=== PATIENT | male | born 1960 | race Hispanic/Latino ===

== ENCOUNTER 2018-07-21 01:46 | Inpatient (IN) | payer OTHER ==
[2018-07-21 02:48] LABS: Basophils # (Auto) 0.1 K/mm3 (0.0-0.1); Basophils % (Auto) 1.6 % (0.0-1.8); Eosinophils % (Auto) 0.5 % (0.0-4.3); Hematocrit 42.7 % (35.5-45.6); Lymphocytes # (Auto) 0.6 K/mm3 (1.2-5.4); Lymphocytes % (Auto) 14.2 % (13.4-35.0); Mean Corpuscular HGB Conc 33 % (32-34); Mean Corpuscular Hemoglobin 35 pg (28-32); Mean Corpuscular Volume 107 fl (84-94); Monocytes # (Auto) 0.3 K/mm3 (0.0-0.8); Monocytes % (Auto) 8.4 % (0.0-7.3); Platelet Count 159 K/mm3 (140-440); Red Blood Count 3.98 M/mm3 (3.65-5.03); Red Cell Distribution Width 15.4 % (13.2-15.2)
[2018-07-21 03:11] LABS: BUN/Creatinine Ratio 24; Blood Urea Nitrogen 17 mg/dL (9-20); Calcium 8.4 mg/dL (8.4-10.2); Hemolysis Index 20
[2018-07-21 03:20] LABS: INR 0.89 (0.87-1.13); Partial Thromboplastin Time 22.8 Sec. (24.2-36.6)
--- NOTE | 2018-07-21 04:44 | XRay Report ---
FINAL REPORT PROCEDURE: XR CHEST ROUTINE 2V TECHNIQUE: PA and lateral chest radiographs were obtained. CPT 66827 HISTORY: Shortness of breath COMPARISON: No prior studies are available for comparison. FINDINGS: Heart: Normal. Mediastinum/Vessels: Normal. Lungs/Pleural space: Normal. Bony thorax: No acute osseous abnormality. Other: IMPRESSION: Normal examination.
--- NOTE | 2018-07-21 05:57 | Emergency Department Report ---
ED Shortness of Breath HPI - General Chief Complaint: Dyspnea/Respdistress Stated Complaint: THAD/EDEMA IN LE Time Seen by Provider: 07/21/18 03:56 Source: patient, EMS, old records reviewed (no previous medical record) Mode of arrival: Stretcher Limitations: No Limitations - History of Present Illness Initial Comments: 57-year-old male with a past medical history of CHF, COPD without home oxygen use, CAD with stent 2 presents to the hospital with complaints of progressively worsening shortness of breath 4 days. Patient also having intermittent sternal chest pain but denies pain currently. Patient is having a cough with episode of posttussive vomiting and occasional wheezing. Patient chronically sleeps on 2 pillows and has PND. He is using his albuterol inhaler intermittently without improvement. He noticed progressively worsening bilateral lower extremity edema. Patient lives in [place] and traveled here 1 week ago via airplane for the holidays. He is compliant with his medication but does not appear to be on a diuretic. He was under the impression that hydralazine was a diuretic. He does not know his baseline ejection fraction. - Related Data Home Medications Medication Instructions Recorded Confirmed Last Taken Clopidogrel [Plavix] 75 mg PO QDAY 07/21/18 07/21/18 Unknown DULoxetine [Cymbalta] 30 mg PO BID 07/21/18 07/21/18 Unknown Lisinopril [Zestril TAB] 2.5 mg PO QDAY 07/21/18 07/21/18 Unknown Metoprolol Xl [Metoprolol 25 mg PO QDAY 07/21/18 07/21/18 Unknown SUCCINATE ER TAB] Pantoprazole [Protonix TAB] 20 mg QDAY 07/21/18 07/21/18 Unknown RX: hydrALAZINE [Apresoline TAB] 25 mg PO TID 07/21/18 07/21/18 Unknown Allergies Allergy/AdvReac Type Severity Reaction Status Date / Time No Known Allergies Allergy Unverified 07/21/18 02:11 ED Review of Systems ROS: Stated complaint: THAD/EDEMA IN LE Other details as noted in HPI Comment: All other systems reviewed and negative ED Past Medical Hx - Past Medical History Previous Medical History?: Yes Hx Congestive Heart Failure: Yes Hx COPD: Yes - Surgical History Past Surgical History?: Yes Hx Coronary Stent: Yes (x 2) Additional Surgical History: Sx to left arm and right hip - Social History Smoking Status: Current Every Day Smoker Substance Use Type: Alcohol, Prescribed - Medications Home Medications: Home Medications Medication Instructions Recorded Confirmed Last Taken Type Clopidogrel [Plavix] 75 mg PO QDAY 07/21/18 07/21/18 Unknown History DULoxetine [Cymbalta] 30 mg PO BID 07/21/18 07/21/18 Unknown History Lisinopril [Zestril TAB] 2.5 mg PO QDAY 07/21/18 07/21/18 Unknown History Metoprolol Xl [Metoprolol 25 mg PO QDAY 07/21/18 07/21/18 Unknown History SUCCINATE ER TAB] Pantoprazole [Protonix TAB] 20 mg QDAY 07/21/18 07/21/18 Unknown History RX: hydrALAZINE [Apresoline TAB] 25 mg PO TID 07/21/18 07/21/18 Unknown History ED Physical Exam - General Limitations: No Limitations - Other Other exam information: General: No limitations, patient is alert in no acute distress Head exam: Atraumatic, normocephalic Eyes exam: Normal appearance, pupils equal reactive to light, extraocular movements intact ENT: Moist mucous membrane, normal oropharynx Neck exam: Normal inspection, full range of motion, no meningismus nontender Respiratory exam: Clear to auscultation bilateral, no wheezes, rales, crackles Cardiovascular: Normal rate and rhythm, normal heart sounds Abdomen: Soft, nondistended, and nontender, with normal bowel sounds, no re bound, or guarding Extremity: Full range of motion, mild bilateral lower extremity pedal and distal leg edema. Symmetrical without isolated calf tenderness. He does have tenderness to palpation of the anterior lower leg Back: Normal Inspection, full range of motion, no tenderness Neurologic: Alert, oriented x3, cranial nerves intact, no motor or sensory deficit Psychiatric: normal affect, normal mood Skin: Warm, dry, intact ED Course Vital Signs 07/21/18 07/21/18 07/21/18 02:00 02:01 02:30 Temperature 97.7 F Pulse Rate 83 81 87 Respiratory 11 L 15 21 Rate Blood Pressure 112/73 111/69 117/72 Blood Pressure 111/69 [Right] O2 Sat by Pulse 100 100 100 Oximetry 07/21/18 07/21/18 07/21/18 02:33 03:00 05:26 Temperature Pulse Rate 83 96 H Respiratory 15 19 Rate Blood Pressure 112/73 115/73 Blood Pressure [Right] O2 Sat by Pulse 99 Oximetry 07/21/18 07/21/18 07/21/18 05:30 06:13 06:30 Temperature Pulse Rate 89 94 H 95 H Respiratory 25 H 22 24 Rate Blood Pressure 131/84 126/78 129/80 Blood Pressure [Right] O2 Sat by Pulse 98 95 97 Oximetry 07/21/18 07/21/18 07/21/18 07:00 07:30 07:40 Temperature Pulse Rate 106 H 105 H 96 H Respiratory 34 H 21 29 H Rate Blood Pressure 144/89 129/80 129/80 Blood Pressure [Right] O2 Sat by Pulse 96 95 98 Oximetry 07/21/18 07/21/18 07/21/18 07:50 08:00 08:10 Temperature Pulse Rate 94 H 101 H 99 H Respiratory 29 H 25 H 29 H Rate Blood Pressure 129/80 140/91 140/91 Blood Pressure [Right] O2 Sat by Pulse 94 98 96 Oximetry 07/21/18 07/21/18 07/21/18 08:30 12:29 13:29 Temperature Pulse Rate 90 Respiratory 16 20 Rate Blood Pressure 161/89 156/89 Blood Pressure [Right] O2 Sat by Pulse 97 Oximetry 07/21/18 07/21/18 13:30 13:35 Temperature 98.3 F 98.3 F Pulse Rate 90 Respiratory 20 Rate Blood Pressure Blood Pressure 111/69 [Right] O2 Sat by Pulse 97 Oximetry ED Medical Decision Making - Lab Data Result diagrams: 07/21/18 02:35 07/21/18 02:35 Lab Results 07/21/18 07/21/18 07/21/18 Range/Units 02:35 02:35 02:51 WBC 4.2 L (4.5-11.0) K/mm3 RBC 3.98 (3.65-5.03) M/mm3 Hgb 14.0 (11.8-15.2) gm/dl Hct 42.7 (35.5-45.6) % MCV 107 H (84-94) fl MCH 35 H (28-32) pg MCHC 33 (32-34) % RDW 15.4 H (13.2-15.2) % Plt Count 159 (140-440) K/mm3 Lymph % (Auto) 14.2 (13.4-35.0) % [place] % (Auto) 8.4 H (0.0-7.3) % Eos % (Auto) 0.5 (0.0-4.3) % Baso % (Auto) 1.6 (0.0-1.8) % Lymph # 0.6 L (1.2-5.4) K/mm3 [place] # 0.3 (0.0-0.8) K/mm3 Eos # 0.0 (0.0-0.4) K/mm3 Baso # 0.1 (0.0-0.1) K/mm3 Seg Neutrophils % 75.3 H (40.0-70.0) % Seg Neutrophils # 3.1 (1.8-7.7) K/mm3 PT (12.2-14.9) Sec. INR (0.87-1.13) APTT (24.2-36.6) Sec. D-Dimer 608.66 H (0-234) ng/mlDDU Sodium 140 (137-145) mmol/L Potassium 4.0 (3.6-5.0) mmol/L Chloride 98.7 (98-107) mmol/L Carbon Dioxide 18 L (22-30) mmol/L Anion Gap 27 mmol/L BUN 17 (9-20) mg/dL Creatinine 0.7 L (0.8-1.5) mg/dL Estimated GFR > 60 ml/min BUN/Creatinine Ratio 24 % Glucose 94 (75-100) mg/dL Calcium 8.4 (8.4-10.2) mg/dL Total Creatine Kinase (55-170) units/L CK-MB (CK-2) (0.0-4.0) ng/mL CK-MB (CK-2) Rel Index (0-4) Troponin T (0.00-0.029) ng/mL NT-Pro-B Natriuret Pep (0-900) pg/mL 07/21/18 07/21/18 Range/Units 02:54 02:54 WBC (4.5-11.0) K/mm3 RBC (3.65-5.03) M/mm3 Hgb (11.8-15.2) gm/dl Hct (35.5-45.6) % MCV (84-94) fl MCH (28-32) pg MCHC (32-34) % RDW (13.2-15.2) % Plt Count (140-440) K/mm3 Lymph % (Auto) (13.4-35.0) % [place] % (Auto) (0.0-7.3) % Eos % (Auto) (0.0-4.3) % Baso % (Auto) (0.0-1.8) % Lymph # (1.2-5.4) K/mm3 [place] # (0.0-0.8) K/mm3 Eos # (0.0-0.4) K/mm3 Baso # (0.0-0.1) K/mm3 Seg Neutrophils % (40.0-70.0) % Seg Neutrophils # (1.8-7.7) K/mm3 PT 12.4 (12.2-14.9) Sec. INR 0.89 (0.87-1.13) APTT 22.8 L (24.2-36.6) Sec. D-Dimer (0-234) ng/mlDDU Sodium (137-145) mmol/L Potassium (3.6-5.0) mmol/L Chloride (98-107) mmol/L Carbon Dioxide (22-30) mmol/L Anion Gap mmol/L BUN (9-20) mg/dL Creatinine (0.8-1.5) mg/dL Estimated GFR ml/min BUN/Creatinine Ratio % Glucose (75-100) mg/dL Calcium (8.4-10.2) mg/dL Total Creatine Kinase 87 (55-170) units/L CK-MB (CK-2) 4.0 (0.0-4.0) ng/mL CK-MB (CK-2) Rel Index 4.5 H (0-4) Troponin T < 0.010 (0.00-0.029) ng/mL NT-Pro-B Natriuret Pep 45.51 (0-900) pg/mL - EKG Data -: EKG Interpreted by Me (incomplete right bundle-branch block, old anterior infarct) EKG shows normal: sinus rhythm, axis (qrs 13), QRS complexes (qrsd 119), ST-T waves (no stemi) Rate: normal - EKG Data When compared to previous EKG there are: previous EKG unavailable - Radiology Data Radiology results: report reviewed FINAL REPORT PROCEDURE: XR CHEST ROUTINE 2V TECHNIQUE: PA and lateral chest radiographs were obtained. CPT 47148 HISTORY: Shortness of breath COMPARISON: No prior studies are available for comparison. FINDINGS: Heart: Normal. Mediastinum/Vessels: Normal. Lungs/Pleural space: Normal. Bony thorax: No acute osseous abnormality. Other: IMPRESSION: Normal examination. - Medical Decision Making Patient will be admitted to the hospital for further workup of worsening shortness of breath. D-dimer is elevated with a recent travel history. CT angiogram and bilateral leg Dopplers pending at disposition. Patient will be signed out to oncoming physician Dr. Flores to admit after CT report returns. Pt informed of plan to admit. - Differential Diagnosis IL, PE, atypical CP, COPD, costochondritis, CHF, kidney failure, liver fail Critical Care Time: No Critical care attestation.: If time is entered above; I have spent that time in minutes in the direct care of this critically ill patient, excluding procedure time. ED Disposition Clinical Impression: Dyspnea, Bilateral leg edema, Chest pain, Hx of congestive heart failure, H/O heart artery stent, COPD (chronic obstructive pulmonary disease) Disposition: OP ADMIT IP TO THIS HOSP Is pt being admited?: Yes Condition: Stable Time of Disposition: 06:01 (pending admission )
--- NOTE | 2018-07-21 06:25 | Cat Scan Report ---
FINAL REPORT PROCEDURE: CT ANGIO CHEST TECHNIQUE: Computerized tomographic angiography of the chest was performed after the IV injection of iodinated nonionic contrast including image processing. The image data was postprocessed using 2-dim ensional multiplanar reformatted (MPR) and 3-dimensional (MIP and/or volume rendered) techniques. HISTORY: sob, elevated ddimer COMPARISON: No prior studies are available for comparison. FINDINGS: Heart and pericardium: Normal. Thoracic aorta: Normal. Pulmonary vasculature: There is no evidence of pulmonary arterial emboli. Lymph nodes: No enlarged thoracic lymph nodes. Lungs: The lungs are clear. No infiltrate, effusion or pneumothorax. Pleural space: No effusion, thickening, or pneumothorax. Musculoskeletal structures: No significant abnormality. Upper abdominal structures: There is fatty infiltration of the liver. IMPRESSION: There is no evidence of pulmonary arterial emboli. The lungs are clear.
[2018-07-21] MEDS ORDERED: ZOFRAN ONE (07:00)
[2018-07-21] MEDS ORDERED: ZOFRAN IV ONE (07:00)
[2018-07-21] MEDS ORDERED: SUBLIMAZE ONE (08:20)
[2018-07-21] MEDS ORDERED: REGLAN ONE (08:26)
[2018-07-21] MEDS ORDERED: SUBLIMAZE IV ONE (08:41)
[2018-07-21] MEDS ORDERED: REGLAN IV ONE (08:41)
--- NOTE | 2018-07-21 13:01 | History and Physical Report ---
History of Present Illness Date of admission: 07/21/18 08:03 Chief complaint: Shortness of breath History of present illness: 57-year-old male with a past medical history of COPD and CHF, CAD status post stents. Presents with progressive shortness of breath 4 days. Associated with chest pain. Prior to patient's chest pain has been substernal dull, 4 out of 10 and intermittent. Also associated with cough, which he had an episode of posttussive vomiting with. The patient is also complaining of wheezing. He is complaining of 2 pillow orthopnea and PND. He has uses albuterol inhaler and has had no improvement. She has worsening bipedal edema. The patient actually lives in [place], traveled to [place] for the holidays. He states that he has been compliant with all his medications, but he's not on that a diuretic. He was under the impression that hydralazine was a diuretic, he does not know his EF but knows he has CHF. He admits that he has been eating some salty foods and consuming lots of liquids. He is not complaining of tremors and shaking, has not had a drink for 2 days, usually drinks very heavily Past medical history CHF, COPD and, hypertension, tobacco abuse, CAD status post stents Past surgical history Surgery to left arm and right hip Social history current every day smoker, drinks alcohol heavily, a pint of liquor daily, denies illicit drug use Family history hypertension and heart disease Medications and Allergies Allergies Allergy/AdvReac Type Severity Reaction Status Date / Time No Known Allergies Allergy Unverified 07/21/18 02:11 Home Medications Medication Instructions Recorded Confirmed Last Taken Type Clopidogrel [Plavix] 75 mg PO QDAY 07/21/18 07/21/18 Unknown History DULoxetine [Cymbalta] 30 mg PO BID 07/21/18 07/21/18 Unknown History Lisinopril [Zestril TAB] 2.5 mg PO QDAY 07/21/18 07/21/18 Unknown History Metoprolol Xl [Metoprolol 25 mg PO QDAY 07/21/18 07/21/18 Unknown History SUCCINATE ER TAB] Pantoprazole [Protonix TAB] 20 mg QDAY 07/21/18 07/21/18 Unknown History hydrALAZINE [Apresoline TAB] 25 mg PO TID 07/21/18 07/21/18 Unknown History Review of Systems All systems: negative Constitutional: fatigue Ears, nose, mouth and throat: no deferred Cardiovascular: chest pain, orthopnea Respiratory: cough Gastrointestinal: no nausea Genitourinary Male: no dysuria Rectal: no pain Musculoskeletal: no neck stiffness Integumentary: no rash Neurological: no head injury Psychiatric: no anxiety Endocrine: no cold intolerance Hematologic/Lymphatic: no easy bruising Allergic/Immunologic: no urticaria Exam - Constitutional Vitals: Temp Pulse Resp BP Pulse Ox 97.7 F 105 H 16 129/80 95 07/21/18 02:01 07/21/18 07:30 07/21/18 08:30 07/21/18 07:30 07/21/18 07:30 General appearance: Present: no acute distress, well-nourished - EENT Eyes: Present: PERRL ENT: hearing intact, clear oral mucosa - Neck Neck: Present: supple, normal ROM - Respiratory Respiratory effort: normal Respiratory: bilateral: diminished, rales - Cardiovascular Heart Sounds: Present: S1 & S2. Absent: rub, click - Extremities Extremities: pulses symmetrical Extremity abnormal: edema Peripheral Pulses: within normal limits - Abdominal General gastrointestinal: Present: soft, non-tender, non-distended, normal bowel sounds Male genitourinary: Present: normal - Integumentary Integumentary: Present: clear, warm, dry - Musculoskeletal Musculoskeletal: gait normal, strength equal bilaterally - Psychiatric Psychiatric: appropriate mood/affect, intact judgment & insight - Neurologic Neurologic: CNII-XII intact, moves all extremities, other (tremors in all extremities) Results - Labs CBC & Chem 7: 07/21/18 02:35 07/21/18 02:35 Labs: Laboratory Last Values WBC 4.2 K/mm3 (4.5-11.0) L 07/21/18 02:35 RBC 3.98 M/mm3 (3.65-5.03) 07/21/18 02:35 Hgb 14.0 gm/dl (11.8-15.2) 07/21/18 02:35 Hct 42.7 % (35.5-45.6) 07/21/18 02:35 MCV 107 fl (84-94) H 07/21/18 02:35 MCH 35 pg (28-32) H 07/21/18 02:35 MCHC 33 % (32-34) 07/21/18 02:35 RDW 15.4 % (13.2-15.2) H 07/21/18 02:35 Plt Count 159 K/mm3 (140-440) 07/21/18 02:35 Lymph % (Auto) 14.2 % (13.4-35.0) 07/21/18 02:35 [place] % (Auto) 8.4 % (0.0-7.3) H 07/21/18 02:35 Eos % (Auto) 0.5 % (0.0-4.3) 07/21/18 02:35 Baso % (Auto) 1.6 % (0.0-1.8) 07/21/18 02:35 Lymph # 0.6 K/mm3 (1.2-5.4) L 07/21/18 02:35 [place] # 0.3 K/mm3 (0.0-0.8) 07/21/18 02:35 Eos # 0.0 K/mm3 (0.0-0.4) 07/21/18 02:35 Baso # 0.1 K/mm3 (0.0-0.1) 07/21/18 02:35 Seg Neutrophils % 75.3 % (40.0-70.0) H 07/21/18 02:35 Seg Neutrophils # 3.1 K/mm3 (1.8-7.7) 07/21/18 02:35 PT 12.4 Sec. (12.2-14.9) 07/21/18 02:54 INR 0.89 (0.87-1.13) 07/21/18 02:54 APTT 22.8 Sec. (24.2-36.6) L 07/21/18 02:54 D-Dimer 608.66 ng/mlDDU (0-234) H 07/21/18 02:51 Sodium 140 mmol/L (137-145) 07/21/18 02:35 Potassium 4.0 mmol/L (3.6-5.0) 07/21/18 02:35 Chloride 98.7 mmol/L (98-107) 07/21/18 02:35 Carbon Dioxide 18 mmol/L (22-30) L 07/21/18 02:35 Anion Gap 27 mmol/L 07/21/18 02:35 BUN 17 mg/dL (9-20) 07/21/18 02:35 Creatinine 0.7 mg/dL (0.8-1.5) L 07/21/18 02:35 Estimated GFR > 60 ml/min 07/21/18 02:35 BUN/Creatinine Ratio 24 % 07/21/18 02:35 Glucose 94 mg/dL (75-100) 07/21/18 02:35 Calcium 8.4 mg/dL (8.4-10.2) 07/21/18 02:35 Total Creatine Kinase 87 units/L (55-170) 07/21/18 02:54 CK-MB (CK-2) 4.0 ng/mL (0.0-4.0) 07/21/18 02:54 CK-MB (CK-2) Rel Index 4.5 (0-4) H 07/21/18 02:54 Troponin T < 0.010 ng/mL (0.00-0.029) 07/21/18 02:54 NT-Pro-B Natriuret Pep 45.51 pg/mL (0-900) 07/21/18 02:54 - Imaging and Cardiology CT scan - chest: image reviewed (no acute findings) Assessment and Plan Assessment and plan: 57-year-old man with history of hypertension, CAD status post stents, CHF, COPD, current every day smoker. Presents with orthopnea and edema chest pain and progressive shortness of breath Acute exacerbation of CHF IV diuretics, optimize medications, obtain echocardiogram Pedal edema is most likely due to CHF, prelim report of lower extremity Dopplers negative for DVT COPD exacerbation Steroids and nebulizers, RT consult Acute respiratory failure Oxygen supplement as needed Hypertension BP meds Tobacco abuse, Counseled about cessation, nicotine patches Alcohol abuse and withdrawal [facility] protocol, counseled about cessation DVT prophylaxis Chemical
[2018-07-21] MEDS ORDERED: SODIUM CHLORIDE FLUSH SYRINGE 10 ML IV PRN (13:05)
[2018-07-21] MEDS ORDERED: TYLENOL PO PRN (13:05)
[2018-07-21] MEDS ORDERED: ZOFRAN IV PRN (13:05)
[2018-07-21] MEDS ORDERED: PROVENTIL IH PRN (13:05)
[2018-07-21] MEDS ORDERED: LASIX 80 MG in NACL 0.9% 50 ML IV ONE (13:08)
[2018-07-21] MEDS ORDERED: ATIVAN IV PRN ×2 (13:20)
[2018-07-21] MEDS: SOLU-Medrol IV SCH ×2 (14:19→22:55)
[2018-07-21] MEDS: ATIVAN PO PRN ×2 (14:20→18:06)
[2018-07-21] MEDS: APRESOLINE PO SCH ×2 (14:20→21:45)
[2018-07-21] MEDS: LASIX IV SCH (18:06)
[2018-07-21] MEDS ORDERED: LIBRIUM PO PRN (19:03)
[2018-07-21] MEDS: DUONEB *Not for PRN Use IH SCH (21:18)
[2018-07-21] MEDS: PULMICORT IH SCH (21:18)
[2018-07-21] MEDS: SODIUM CHLORIDE FLUSH SYRINGE 10 ML IV SCH (22:55)
[2018-07-21] MEDS: LOVENOX SUB-Q SCH (22:55)
[2018-07-21] MEDS: CYMBALTA PO SCH (22:55)
[2018-07-22] MEDS: DUONEB *Not for PRN Use IH SCH ×5 (02:01→20:57)
[2018-07-22 05:39] LABS: Basophils % (Auto) 0.9 % (0.0-1.8); Hemoglobin 13.9 gm/dl (11.8-15.2); Lymphocytes # (Auto) 0.2 K/mm3 (1.2-5.4); Lymphocytes % (Auto) 4.5 % (13.4-35.0); Mean Corpuscular HGB Conc 35 % (32-34); Mean Corpuscular Hemoglobin 36 pg (28-32); Mean Corpuscular Volume 103 fl (84-94); Monocytes # (Auto) 0.2 K/mm3 (0.0-0.8); Monocytes % (Auto) 4.8 % (0.0-7.3); Platelet Count 110 K/mm3 (140-440); Red Cell Distribution Width 14.7 % (13.2-15.2)
[2018-07-22] MEDS: LASIX IV SCH ×2 (05:49→18:39)
[2018-07-22 06:05] LABS: BUN/Creatinine Ratio 23; Blood Urea Nitrogen 14 mg/dL (9-20); Calcium 9.2 mg/dL (8.4-10.2); Hemolysis Index 8
[2018-07-22] MEDS: ATIVAN PO PRN (06:43)
[2018-07-22] MEDS: TORADOL IV PRN ×2 (09:05→20:02)
[2018-07-22] MEDS: APRESOLINE PO SCH ×3 (09:05→21:45)
[2018-07-22] MEDS: PULMICORT IH SCH ×2 (09:21→20:57)
[2018-07-22] MEDS ORDERED: PROTONIX PO SCH ×2 (10:00→14:30)
[2018-07-22] MEDS: FOLVITE PO SCH (11:36)
[2018-07-22] MEDS: PLAVIX PO SCH (11:36)
[2018-07-22] MEDS: ZESTRIL PO SCH (11:37)
[2018-07-22] MEDS: HABITROL TD SCH (11:37)
[2018-07-22] MEDS: TOPROL XL PO SCH (11:37)
[2018-07-22] MEDS: SOLU-Medrol IV SCH ×2 (11:38→21:45)
[2018-07-22] MEDS: VITAMIN B-1 PO SCH (11:38)
[2018-07-22] MEDS: CYMBALTA PO SCH ×2 (11:38→21:45)
--- NOTE | 2018-07-22 13:04 | Progress Note ---
Assessment and Plan Assessment and plan: 57-year-old man with history of hypertension, CAD status post stents, CHF, COPD, current every day smoker. Presents with orthopnea and edema chest pain and progressive shortness of breath Acute exacerbation of CHF IV diuretics, optimize medications, obtain echocardiogram Pedal edema is most likely due to CHF, prelim report of lower extremity Dopplers negative for DVT COPD exacerbation Steroids and nebulizers, RT consult Left upper quadrant pain Concern for gastritis, or peptic ulcer disease, he drinks alcohol very heavily Increased PPI dose to 40 daily, consult GI for possible endoscopy, CT abdomen and pelvis pending- Acute respiratory failure Oxygen supplement as needed Hypertension BP meds Tobacco abuse, Counseled about cessation, nicotine patches Alcohol abuse and withdrawal [facility] protocol, counseled about cessation DVT prophylaxis Chemical History Interval history: Patient continues to feel tremulous and anxious, feels that he is withdrawing from alcohol Review of systems Constitutional: No fevers, no malaise, no joint pains CVS: No chest pain, no orthopnea, no dyspnea on exertion, no pedal edema GI: He is complaining of left upper quadrants abdominal pain, no diarrhea, no vomiting, no constipation Respiratory: No shortness of breath, no wheezing, no coughing Hospitalist Physical - Physical exam Narrative exam: General appearance: Present: no acute distress, well-nourished - EENT Eyes: Present: PERRL ENT: hearing intact, clear oral mucosa - Neck Neck: Present: supple, normal ROM - Respiratory Respiratory effort: normal Respiratory: bilateral: diminished, rales - Cardiovascular Heart Sounds: Present: S1 & S2. Absent: rub, click - Extremities Extremities: pulses symmetrical Extremity abnormal: edema Peripheral Pulses: within normal limits - Abdominal General gastrointestinal: Present: soft, non-tender, non-distended, normal bowel sounds Male genitourinary: Present: normal - Integumentary Integumentary: Present: clear, warm, dry - Musculoskeletal Musculoskeletal: gait normal, strength equal bilaterally - Psychiatric Psychiatric: appropriate mood/affect, intact judgment & insight - Neurologic Neurologic: CNII-XII intact, moves all extremities, other (tremors in all extremities) - Constitutional Vitals: Temp Pulse Resp BP Pulse Ox 98.2 F 112 H 18 143/93 95 07/22/18 12:59 07/22/18 12:59 07/22/18 12:59 07/22/18 12:59 07/22/18 12:59 General appearance: Present: no acute distress, well-nourished Results - Labs CBC & Chem 7: 07/22/18 05:15 07/22/18 05:15 Labs: Laboratory Last Values WBC 3.7 K/mm3 (4.5-11.0) L 07/22/18 05:15 RBC 3.90 M/mm3 (3.65-5.03) 07/22/18 05:15 Hgb 13.9 gm/dl (11.8-15.2) 07/22/18 05:15 Hct 40.0 % (35.5-45.6) 07/22/18 05:15 MCV 103 fl (84-94) H 07/22/18 05:15 MCH 36 pg (28-32) H 07/22/18 05:15 MCHC 35 % (32-34) H 07/22/18 05:15 RDW 14.7 % (13.2-15.2) 07/22/18 05:15 Plt Count 110 K/mm3 (140-440) L 07/22/18 05:15 Lymph % (Auto) 4.5 % (13.4-35.0) L 07/22/18 05:15 [place] % (Auto) 4.8 % (0.0-7.3) 07/22/18 05:15 Eos % (Auto) 0.0 % (0.0-4.3) 07/22/18 05:15 Baso % (Auto) 0.9 % (0.0-1.8) 07/22/18 05:15 Lymph # 0.2 K/mm3 (1.2-5.4) L 07/22/18 05:15 [place] # 0.2 K/mm3 (0.0-0.8) 07/22/18 05:15 Eos # 0.0 K/mm3 (0.0-0.4) 07/22/18 05:15 Baso # 0.0 K/mm3 (0.0-0.1) 07/22/18 05:15 Seg Neutrophils % 89.8 % (40.0-70.0) H 07/22/18 05:15 Seg Neutrophils # 3.3 K/mm3 (1.8-7.7) 07/22/18 05:15 PT 12.4 Sec. (12.2-14.9) 07/21/18 02:54 INR 0.89 (0.87-1.13) 07/21/18 02:54 APTT 22.8 Sec. (24.2-36.6) L 07/21/18 02:54 D-Dimer 608.66 ng/mlDDU (0-234) H 07/21/18 02:51 Sodium 133 mmol/L (137-145) L 07/22/18 05:15 Potassium 3.8 mmol/L (3.6-5.0) 07/22/18 05:15 Chloride 90.4 mmol/L (98-107) L 07/22/18 05:15 Carbon Dioxide 26 mmol/L (22-30) D 07/22/18 05:15 Anion Gap 20 mmol/L 07/22/18 05:15 BUN 14 mg/dL (9-20) 07/22/18 05:15 Creatinine 0.6 mg/dL (0.8-1.5) L 07/22/18 05:15 Estimated GFR > 60 ml/min 07/22/18 05:15 BUN/Creatinine Ratio 23 % 07/22/18 05:15 Glucose 219 mg/dL (75-100) H 07/22/18 05:15 Calcium 9.2 mg/dL (8.4-10.2) 07/22/18 05:15 Total Creatine Kinase 87 units/L (55-170) 07/21/18 02:54 CK-MB (CK-2) 4.0 ng/mL (0.0-4.0) 07/21/18 02:54 CK-MB (CK-2) Rel Index 4.5 (0-4) H 07/21/18 02:54 Troponin T < 0.010 ng/mL (0.00-0.029) 07/21/18 13:36 NT-Pro-B Natriuret Pep 45.51 pg/mL (0-900) 07/21/18 02:54
[2018-07-22] MEDS ORDERED: PERCOCET 5/325 PO PRN (14:30)
--- NOTE | 2018-07-22 16:01 | Gastroenterology Consultation ---
History of Present Illness - Reason for Consult Consult date: 07/22/18 abdominal pain - History of Present Illness This is a 57 yo male with pmh of COPD, CHF, and CAD s/p stents in the past, and alcohol use admitted to hospitalist service for SOB likely due to CHF exacerbation. GI consulted today for new onset abdominal pain. Patient has been having nausea and NBNB emesis for the past few days exacerbated with coughing. He developed upper abdominal pain this morning and loss of appetite. He denies any blood in the stool but reports having dark stools. He takes emiliano seltzer at home for the nausea. No prior EGD or colonoscopy. Past History Past Medical History: CAD, COPD, heart failure Past Surgical History: appendectomy Social history: lives with family, alcohol abuse Medications and Allergies Allergies Allergy/AdvReac Type Severity Reaction Status Date / Time No Known Allergies Allergy Unverified 07/21/18 02:11 Home Medications Medication Instructions Recorded Confirmed Last Taken Type Clopidogrel [Plavix] 75 mg PO QDAY 07/21/18 07/21/18 Unknown History DULoxetine [Cymbalta] 30 mg PO BID 07/21/18 07/21/18 Unknown History Lisinopril [Zestril TAB] 2.5 mg PO QDAY 07/21/18 07/21/18 Unknown History Metoprolol Xl [Metoprolol 25 mg PO QDAY 07/21/18 07/21/18 Unknown History SUCCINATE ER TAB] Pantoprazole [Protonix TAB] 20 mg QDAY 07/21/18 07/21/18 Unknown History hydrALAZINE [Apresoline TAB] 25 mg PO TID 07/21/18 07/21/18 Unknown History Active Meds: Active Medications Acetaminophen (Tylenol) 650 mg PO Q4H PRN PRN Reason: Pain MILD(1-3)/Fever >100.5/GUILLORY Albuterol (Proventil) 2.5 mg IH Q4HRT PRN PRN Reason: Shortness Of Breath Albuterol/Ipratropium (Duoneb *Not For Prn Use*) 1 ampul IH Q6HRT [facility] Last Admin: 07/22/18 13:48 Dose: 1 ampul Documented by: Budesonide (Pulmicort) 0.5 mg IH Q12HRT [facility] Last Admin: 07/22/18 09:21 Dose: 0.5 mg Documented by: Chlordiazepoxide HCl (Librium) 50 mg PO Q8H PRN PRN Reason: Anxiety Last Admin: 07/21/18 23:22 Dose: 50 mg Documented by: Clopidogrel Bisulfate (Plavix) 75 mg PO QDAY [facility] Last Admin: 07/22/18 11:36 Dose: 75 mg Documented by: Duloxetine HCl (Cymbalta) 30 mg PO BID [facility] Last Admin: 07/22/18 11:38 Dose: 30 mg Documented by: Enoxaparin Sodium (Lovenox) 40 mg SUB-Q QDAY@2200 [facility] Last Admin: 07/21/18 22:55 Dose: 40 mg Documented by: Folic Acid (Folvite) 1 mg PO QDAY [facility] Last Admin: 07/22/18 11:36 Dose: 1 mg Documented by: Furosemide (Lasix) 40 mg IV BID@0600,1800 [facility] Last Admin: 07/22/18 05:49 Dose: 40 mg Documented by: Hydralazine HCl (Apresoline) 25 mg PO TID [facility] Last Admin: 07/22/18 09:05 Dose: 25 mg Documented by: Ketorolac Tromethamine (Toradol) 15 mg IV Q6H PRN PRN Reason: Pain, Mild (1-3) Last Admin: 07/22/18 09:05 Dose: 15 mg Documented by: Lisinopril (Zestril) 2.5 mg PO QDAY [facility] Last Admin: 07/22/18 11:37 Dose: 2.5 mg Documented by: Lorazepam (Ativan) 2 mg PO Q1H PRN PRN Reason: CIWA-Ar 8-15 Last Admin: 07/22/18 06:43 Dose: 2 mg Documented by: Lorazepam (Ativan) 4 mg IV Q1H PRN PRN Reason: CIWA-Ar 16-25 Lorazepam (Ativan) 4 mg IV Q15MIN PRN PRN Reason: CIWA-Ar >25 Methylprednisolone Sodium Succinate (Solu-Medrol) 40 mg IV Q12HR [facility] Last Admin: 07/22/18 11:38 Dose: 40 mg Documented by: Metoprolol Succinate (Toprol Xl) 25 mg PO QDAY [facility] Last Admin: 07/22/18 11:37 Dose: 25 mg Documented by: Nicotine (Habitrol) 14 mg TD QDAY [facility] Last Admin: 07/22/18 11:37 Dose: 14 mg Documented by: Ondansetron HCl (Zofran) 4 mg IV Q8H PRN PRN Reason: Nausea And Vomiting Last Admin: 07/22/18 00:35 Dose: 4 mg Documented by: Oxycodone/Acetaminophen (Percocet 5/325) 1 tab PO Q6H PRN PRN Reason: Pain, Moderate (4-6) Pantoprazole Sodium (Protonix) 40 mg PO QDAY [facility] Sodium Chloride (Sodium Chloride Flush Syringe 10 Ml) 10 ml IV BID [facility] Last Admin: 07/21/18 22:55 Dose: 10 ml Documented by: Sodium Chloride (Sodium Chloride Flush Syringe 10 Ml) 10 ml IV PRN PRN PRN Reason: LINE FLUSH Thiamine HCl (Vitamin B-1) 100 mg PO QDAY [facility] Last Admin: 07/22/18 11:38 Dose: 100 mg Documented by: Review of Systems - Review of Systems Constitutional: no weight loss, no weight gain Cardiovascular: edema, shortness of breath, other Respiratory: cough, shortness of breath Gastrointestinal: abdominal pain, nausea, vomiting, no diarrhea, no constipation, no hematemesis, no coffee ground emesis Integumentary: no jaundice Exam - Constitutional Vital Signs: Temp Pulse Resp BP Pulse Ox 98.2 F 98 H 20 143/93 95 07/22/18 12:59 07/22/18 13:58 07/22/18 13:58 07/22/18 12:59 07/22/18 12:59 General appearance: no acute distress - EENT Eyes: EOM intact ENT: hearing intact - Neck Neck: supple, normal ROM - Respiratory Respiratory effort: normal - Cardiovascular Rhythm: regular Heart Sounds: Present: S1 & S2 Extremity abnormal: edema - Gastrointestinal General gastrointestinal: Present: soft, tender, non-distended, normal bowel sounds - Integumentary Integumentary: Present: clear, warm - Neurologic Neurological: alert and oriented x3 - Psychiatric Psychiatric: appropriate mood/affect - Labs CBC & Chem 7: 07/22/18 05:15 07/22/18 05:15 Lab Results: Laboratory Results - last 24 hr 07/22/18 07/22/18 05:15 05:15 WBC 3.7 L RBC 3.90 Hgb 13.9 Hct 40.0 MCV 103 H MCH 36 H MCHC 35 H RDW 14.7 Plt Count 110 L Lymph % (Auto) 4.5 L [place] % (Auto) 4.8 Eos % (Auto) 0.0 Baso % (Auto) 0.9 Lymph # 0.2 L [place] # 0.2 Eos # 0.0 Baso # 0.0 Seg Neutrophils % 89.8 H Seg Neutrophils # 3.3 Sodium 133 L Potassium 3.8 Chloride 90.4 L Carbon Dioxide 26 D Anion Gap 20 BUN 14 Creatinine 0.6 L Estimated GFR > 60 BUN/Creatinine Ratio 23 Glucose 219 H Calcium 9.2 Assessment and Plan # Upper abdominal pain # Nausea/vomiting - new onset. likely 2/2 GERD, gastritis related to alcohol use. - CT abdomen pending Rec: - recommend PPI oral - check LFTs - follow up on CT abdomen results. - no plans for endoscopy today. - will follow.
[2018-07-22 17:10] LABS: Albumin 4.3 g/dL (3.9-5); Bilirubin,Direct 0.6 mg/dL (0-0.2)
--- NOTE | 2018-07-22 19:55 | Cat Scan Report ---
FINAL REPORT EXAM: CT ABDOMEN PELVIS W CON HISTORY: abdominal pain TECHNIQUE: Helical CT scan through the abdomen and pelvis after ingestion of oral contrast and durin g intravenous injection of iodinated contrast. Images are reconstructed in the sagittal and coronal p lanes. PRIORS: None. FINDINGS: There is minimal right basilar subsegmental atelectasis. There is diffuse pronounced low-attenuation of the liver consistent with advanced fatty infiltration. Otherwise, the liver appears normal. The gallbladder, pancreas, spleen and adrenal glands appear normal. The kidneys appear normal. The pelvic organs appear grossly normal. The stomach appears grossly within normal limits. There are no abnormally dilated loops of bowel or acute inflammatory changes. The appendix is not dis cretely visualized but there are no inflammatory changes in the right lower quadrant around the area of the cecum. There is atherosclerotic calcification in the abdominal aorta without aneurysm. Surgical hardware is in place in the right ischial bone for ORIF. IMPRESSION: Diffuse advanced fatty infiltration of the liver. Recommend correlation with LFTs Otherwise, no acute findings.
[2018-07-22] MEDS: LOVENOX SUB-Q SCH (21:45)
[2018-07-22] MEDS: SODIUM CHLORIDE FLUSH SYRINGE 10 ML IV SCH (21:46)
[2018-07-23] MEDS: SODIUM CHLORIDE FLUSH SYRINGE 10 ML IV SCH ×2 (00:28→10:07)
[2018-07-23] MEDS ORDERED: PERCOCET 5/325 PO ONE (04:35)
[2018-07-23] MEDS: LASIX IV SCH (05:00)
[2018-07-23 07:34] LABS: BUN/Creatinine Ratio 20; Blood Urea Nitrogen 14 mg/dL (9-20); Calcium 8.8 mg/dL (8.4-10.2); Hemolysis Index 12
[2018-07-23] MEDS: PULMICORT IH SCH (09:42)
[2018-07-23] MEDS: DUONEB *Not for PRN Use IH SCH ×2 (09:42→13:58)
[2018-07-23] MEDS: ZESTRIL PO SCH (10:06)
[2018-07-23] MEDS: CYMBALTA PO SCH (10:06)
[2018-07-23] MEDS: FOLVITE PO SCH (10:06)
[2018-07-23] MEDS: HABITROL TD SCH (10:06)
[2018-07-23] MEDS: APRESOLINE PO SCH ×2 (10:06→14:13)
[2018-07-23] MEDS: PLAVIX PO SCH (10:06)
[2018-07-23] MEDS: VITAMIN B-1 PO SCH (10:06)
[2018-07-23 10:07] LABS: Hepatitis A Antibody IgM Non-Reactive (NonReactive); Hepatitis B Core IgM Non-Reactive (NonReactive); Hepatitis B Surface Antigen Non-Reactive (Negative); Hepatitis C Virus Antibody Non-Reactive (NonReactive)
[2018-07-23] MEDS: TOPROL XL PO SCH (10:07)
[2018-07-23] MEDS: SOLU-Medrol IV SCH (10:07)
--- NOTE | 2018-07-23 12:23 | Gastroenterology Progress Note ---
Assessment and Plan # Upper abdominal pain # Nausea/vomiting # Elevated liver enzymes - new onset. likely 2/2 GERD, gastritis related to alcohol use. - resolved. - CT abdomen with fatty infiltration of liver. - acute viral hepatitis panel negative Rec: - cont with PPI oral - ok for discharge per GI standpoint and follow up with PCP and GI referral back in [place]. - will sign off. Please call with questions. Subjective Date of service: 07/23/18 Interval history: Patient doing better with abdominal pain improved. Wants to go home. Objective - Constitutional Vitals: Temp Pulse Resp BP Pulse Ox 98.9 F 95 H 18 119/81 97 07/23/18 09:25 07/23/18 09:55 07/23/18 09:55 07/23/18 09:25 07/23/18 09:41 General appearance: no acute distress - EENT Eyes: PERRL, EOM intact ENT: hearing intact - Neck Neck: supple, normal ROM - Respiratory Respiratory effort: normal Respiratory: bilateral: CTA - Cardiovascular Rhythm: regular Heart Sounds: Present: S1 & S2 - Extremities Extremities: No edema - Gastrointestinal General gastrointestinal: Present: soft, non-tender, non-distended, normal bowel sounds - Integumentary Integumentary: Present: clear, warm, dry - Neurologic Neurological: alert and oriented x3 - Labs CBC & Chem 7: 07/22/18 05:15 07/23/18 06:28 Labs: Laboratory Results - last 24 hr 07/22/18 07/23/18 07/23/18 16:18 06:28 08:25 Sodium 132 L Potassium 3.4 L Chloride 85.8 L Carbon Dioxide 27 Anion Gap 23 BUN 14 Creatinine 0.7 L Estimated GFR > 60 BUN/Creatinine Ratio 20 Glucose 155 H Calcium 8.8 Total Bilirubin 1.40 H Direct Bilirubin 0.6 H Indirect Bilirubin 0.8 AST 156 H ALT 119 H Alkaline Phosphatase 130 H Total Protein 6.3 Albumin 4.3 Albumin/Globulin Ratio 2.2 Hepatitis A IgM Ab Non-reactive Hep Bs Antigen Non-reactive Hep B Core IgM Ab Non-reactive Hepatitis C Antibody Non-reactive - Imaging CT scan: report reviewed
[2018-07-23 12:47] VITALS: BP 104/70
--- NOTE | 2018-07-23 13:27 | Discharge Summary ---
Providers - Providers Date of Admission: 07/21/18 08:03 Attending physician: PATRIZIA MEREDITH MD 07/22/18 13:00 Consult to Physician [CONS] Routine Comment: Consulting Provider: CARLOS A WEEKS Physician Instructions: Reason For Exam: etoh abuse with LUQ pain Primary care physician: MANAGER Hospitalization Reason for admission: shortness of breath Condition: Stable Hospital course: 57-year-old man with history of hypertension, CAD status post stents, CHF, COPD, current every day smoker. Presents with orthopnea and edema chest pain and progressive shortness of breath. Patient was treated with IV lasix and also negative doppler for DVT. Treatment was discussed with the paitent and he verbalized understanding. Acute exacerbation of CHF Pedal edema is most likely due to CHF, prelim report of lower extremity Dopplers negative for DVT COPD exacerbation Steroids and nebulizers, RT consult Left upper quadrant pain Concern for gastritis, or peptic ulcer disease, he drinks alcohol very heavily Increased PPI dose to 40 daily,GI Cleared for patient to be discharged on Oral PPI Acute respiratory failure Oxygen supplement as needed Hypertension BP meds Tobacco abuse, Counseled about cessation, nicotine patches Acute VIRAL Hepatitis Alcohol abuse and withdrawal CIWA protocol, counseled about cessation Disposition: DC-01 TO HOME OR SELFCARE Time spent for discharge: 35 mins Core Measure Documentation - Palliative Care Palliative Care/ Comfort Measures: Not Applicable - Core Measures Any of the following diagnoses?: none Exam - Physical Exam Narrative exam: General appearance: Present: no acute distress, well-nourished - EENT Eyes: Present: PERRL ENT: hearing intact, clear oral mucosa - Neck Neck: Present: supple, normal ROM - Respiratory Respiratory effort: normal Respiratory: bilateral: diminished, rales - Cardiovascular Heart Sounds: Present: S1 & S2. Absent: rub, click - Extremities Extremities: pulses symmetrical Extremity abnormal: edema Peripheral Pulses: within normal limits - Abdominal General gastrointestinal: Present: soft, non-tender, non-distended, normal bowel sounds Male genitourinary: Present: normal - Integumentary Integumentary: Present: clear, warm, dry - Musculoskeletal Musculoskeletal: gait normal, strength equal bilaterally - Psychiatric Psychiatric: appropriate mood/affect, intact judgment & insight - Neurologic Neurologic: CNII-XII intact, moves all extremities, other - Constitutional Vitals: Temp Pulse Resp BP Pulse Ox 99.2 F 92 H 20 104/70 95 07/23/18 12:45 07/23/18 12:46 07/23/18 12:46 07/23/18 12:46 07/23/18 12:46 Plan Activity: advance as tolerated, fall precautions Diet: diabetic Special Instructions: record daily weights, record daily BP diary, record blood sugar diary Follow up with: PRIMARY MD SAMY [Primary Care Provider] - 7 Days MIN,SHERYL RIVAS MD [Staff Physician] - 7 Days Prescriptions: Folic Acid [Folvite] 1 mg PO QDAY #30 tablet Nicotine [Habitrol] 14 mg TD QDAY #30 patch Pantoprazole [Protonix TAB] 40 mg PO QDAY #30 tablet.dr Prednisone [predniSONE 10 mg (6-Day Pack, 21 Tabs)] 10 mg PO .TAPER #1 tab.ds.pk Thiamine [Vitamin B-1] 100 mg PO QDAY #30 tablet
== END 2018-07-23 14:37 | disposition home or self-care (01) | DRG 291 ==
LOC: ED 01:46 → 4A 08:03
PROVIDERS: ADMIT Internal Medicine; ATTEND Internal Medicine
DX: I11.0 Hypertensive heart disease with heart failure (principal); J96.00 Acute respiratory failure, unspecified whether with hypoxia or hypercapnia; J44.1 Chronic obstructive pulmonary disease with (acute) exacerbation; B17.9 Acute viral hepatitis, unspecified; I50.9 Heart failure, unspecified; F10.10 Alcohol abuse, uncomplicated; K27.9 Peptic ulcer, site unspecified, unspecified as acute or chronic, without hemorrhage or perforation; K29.70 Gastritis, unspecified, without bleeding; Y90.0 Blood alcohol level of less than 20 mg/100 ml; F17.210 Nicotine dependence, cigarettes, uncomplicated; I25.10 Atherosclerotic heart disease of native coronary artery without angina pectoris; Z95.5 Presence of coronary angioplasty implant and graft; Z82.49 Family history of ischemic heart disease and other diseases of the circulatory system; Z79.899 Other long term (current) drug therapy; Z90.49 Acquired absence of other specified parts of digestive tract; Z71.41 Alcohol abuse counseling and surveillance of alcoholic; Z71.6 Tobacco abuse counseling
CPT/HCPCS: 36415; 71046; 71275; 74177; 80048; 80074; 80076; 82550; 82553; 83880; 84484; 85025; 85379; 85610; 85730; 93005; 93010; 93306; 93970; 94640; 94760; 96374; 96375; 99406; G0378; J1650; J1885; J1940; J2405; J2765; J2920; J3010; Q9967

== ENCOUNTER 2018-07-31 15:40 | Emergency (ER) | payer SELFPAY ==
[2018-07-31] MEDS ORDERED: ASPIRIN PO ONE (15:54)
--- NOTE | 2018-07-31 16:45 | XRay Report ---
FINAL REPORT EXAM: XR CHEST ROUTINE 2V HISTORY: SOB, CP TECHNIQUE: Two view chest PA and lateral PRIORS: Comparison is dated July 21, 2018 FINDINGS: Cardiac and mediastinal contours are unremarkable. No focal pulmonary infiltrate is identified. No pleural fluid collection seen. Pulmonary vasculature is unremarkable. IMPRESSION: Negative two-view chest
[2018-07-31 17:05] LABS: Hematocrit 37.9 % (35.5-45.6); Hemoglobin 13.1 gm/dl (11.8-15.2); Mean Corpuscular HGB Conc 34 % (32-34); Mean Corpuscular Volume 105 fl (84-94); Platelet Count 121 K/mm3 (140-440); Red Cell Distribution Width 15.4 % (13.2-15.2)
[2018-07-31 17:18] LABS: BUN/Creatinine Ratio 29; Blood Urea Nitrogen 20 mg/dL (9-20); Hemolysis Index 164
[2018-07-31 17:41] LABS: Band Neutrophils # (Manual) 0.1 K/mm3; Basophils % (Manual) 0 % (0.0-1.8); Eosinophils % (Manual) 0 % (0.0-4.3); Myelocytes # (Manual) 0.1 K/mm3; Total Cells Counted 100
[2018-07-31 17:42] LABS: Anisocytosis 1+; Macrocytosis Few; Platelet Estimate Consistent w Auto; Poikilocytosis 1+; Target Cells Few
[2018-07-31] MEDS ORDERED: ATROVENT IH ONE (18:10)
[2018-07-31] MEDS ORDERED: SOLU-Medrol IV ONE (18:10)
[2018-07-31] MEDS ORDERED: LASIX IV ONE (18:10)
[2018-07-31] MEDS ORDERED: PROVENTIL IH ONE (18:11)
--- NOTE | 2018-07-31 18:15 | Emergency Department Report ---
ED Shortness of Breath HPI - General Chief Complaint: Dyspnea/Respdistress Stated Complaint: CHF/THAD Time Seen by Provider: 07/31/18 18:05 Source: patient Mode of arrival: Wheelchair Limitations: No Limitations - History of Present Illness Initial Comments: Patient is 57 years old male with history of COPD, congestive heart failure, coronary artery disease, status post stent. Patient presented to the ER complaining of shortness of breath for the last 2-3 days. Patient is accompanied by his daughter, patient originally from [facility] and visiting his daughter. The patient was recently discharged from the hospital for the same symptoms. Patient stated that he has been taking his Lasix and albuterol that he is getting too much shortness of breath and lower extremity swelling. Patient also is a daily alcohol drinker. MD Complaint: shortness of breath, cough -: days(s) Known History Of: COPD, congestive heart failure Associated Symptoms: denies other symptoms - Related Data Home Medications Medication Instructions Recorded Confirmed Last Taken Clopidogrel [Plavix] 75 mg PO QDAY 07/21/18 07/21/18 Unknown DULoxetine [Cymbalta] 30 mg PO BID 07/21/18 07/21/18 Unknown Lisinopril [Zestril TAB] 2.5 mg PO QDAY 07/21/18 07/21/18 Unknown Metoprolol Xl [Metoprolol 25 mg PO QDAY 07/21/18 07/21/18 Unknown SUCCINATE ER TAB] hydrALAZINE [Apresoline TAB] 25 mg PO TID 07/21/18 07/21/18 Unknown Gabapentin [Neurontin] 300 mg PO Q8HR 07/22/18 07/22/18 07/13/18 20:00 Previous Rx's Medication Instructions Recorded Last Taken Type Folic Acid [Folvite] 1 mg PO QDAY #30 tablet 07/23/18 Unknown Rx Nicotine [Habitrol] 14 mg TD QDAY #30 patch 07/23/18 Unknown Rx Pantoprazole [Protonix TAB] 40 mg PO QDAY #30 tablet. 07/23/18 Unknown Rx Prednisone [predniSONE 10 mg 10 mg PO .TAPER #1 tab.ds.pk 07/23/18 Unknown Rx (6-Day Pack, 21 Tabs)] Thiamine [Vitamin B-1] 100 mg PO QDAY #30 tablet 07/23/18 Unknown Rx Allergies Allergy/AdvReac Type Severity Reaction Status Date / Time No Known Allergies Allergy Unverified 07/21/18 02:11 ED Review of Systems ROS: Stated complaint: CHF/THAD Other details as noted in HPI Comment: All other systems reviewed and negative Constitutional: denies: chills, fever Respiratory: orthopnea, shortness of breath, SOB with exertion, SOB at rest, wheezing. denies: cough, stridor Cardiovascular: dyspnea on exertion, orthopnea, edema. denies: chest pain, palpitations Gastrointestinal: denies: abdominal pain, nausea, vomiting, diarrhea, constipation, hematemesis, melena, hematochezia Genitourinary: denies: urgency, dysuria, frequency, hematuria, discharge, testicular pain, testicular mass, other Musculoskeletal: denies: back pain Neurological: denies: headache, weakness, numbness, paresthesias, confusion, abnormal gait, vertigo ED Past Medical Hx - Past Medical History Hx Congestive Heart Failure: Yes Hx COPD: Yes - Surgical History Hx Coronary Stent: Yes (x 2) Additional Surgical History: Sx to left arm and right hip - Social History Smoking Status: Current Every Day Smoker Substance Use Type: None - Medications Home Medications: Home Medications Medication Instructions Recorded Confirmed Last Taken Type Clopidogrel [Plavix] 75 mg PO QDAY 07/21/18 07/21/18 Unknown History DULoxetine [Cymbalta] 30 mg PO BID 07/21/18 07/21/18 Unknown History Lisinopril [Zestril TAB] 2.5 mg PO QDAY 07/21/18 07/21/18 Unknown History Metoprolol Xl [Metoprolol 25 mg PO QDAY 07/21/18 07/21/18 Unknown History SUCCINATE ER TAB] hydrALAZINE [Apresoline TAB] 25 mg PO TID 07/21/18 07/21/18 Unknown History Gabapentin [Neurontin] 300 mg PO Q8HR 07/22/18 07/22/18 07/13/18 20:00 History Folic Acid [Folvite] 1 mg PO QDAY #30 tablet 07/23/18 Unknown Rx Nicotine [Habitrol] 14 mg TD QDAY #30 patch 07/23/18 Unknown Rx Pantoprazole [Protonix TAB] 40 mg PO QDAY #30 tablet. 07/23/18 Unknown Rx Prednisone [predniSONE 10 mg 10 mg PO .TAPER #1 tab.ds.pk 07/23/18 Unknown Rx (6-Day Pack, 21 Tabs)] Thiamine [Vitamin B-1] 100 mg PO QDAY #30 tablet 07/23/18 Unknown Rx ED Physical Exam - General Limitations: No Limitations General appearance: alert, anxious, in distress, other (shaking, TREMOR) - Head Head exam: Present: atraumatic, normocephalic, normal inspection - Eye Eye exam: Present: normal appearance - ENT ENT exam: Present: normal exam, normal orophraynx, mucous membranes moist - Neck Neck exam: Present: normal inspection, full ROM. Absent: tenderness, meningismus, lymphadenopathy, thyromegaly - Respiratory Respiratory exam: Present: respiratory distress, wheezes, rales, decreased breath sounds, prolonged expiratory. Absent: rhonchi, stridor - Cardiovascular Cardiovascular Exam: Present: tachycardia - GI/Abdominal GI/Abdominal exam: Present: soft, normal bowel sounds. Absent: distended, tenderness, guarding, rebound, rigid, organomegaly, mass, pulsatile mass, hernia - Extremities Exam Extremities exam: Present: full ROM, normal capillary refill, pedal edema. Absent: calf tenderness - Back Exam Back exam: Present: normal inspection, full ROM. Absent: CVA tenderness (R), CVA tenderness (L), muscle spasm, paraspinal tenderness, vertebral tenderness - Neurological Exam Neurological exam: Present: alert, oriented X3, CN II-XII intact, normal gait, reflexes normal - Skin Skin exam: Present: warm, intact, normal color ED Course Vital Signs 07/31/18 07/31/18 07/31/18 15:48 18:10 18:16 Temperature 97.7 F Pulse Rate 99 H 100 H Respiratory 22 27 H Rate Blood Pressure 123/84 123/83 O2 Sat by Pulse 96 97 99 Oximetry 07/31/18 07/31/18 07/31/18 18:30 18:32 18:46 Temperature Pulse Rate 102 H 118 H Respiratory 27 H 20 29 H Rate Blood Pressure 123/83 123/83 O2 Sat by Pulse 98 96 99 Oximetry 07/31/18 07/31/18 07/31/18 19:00 19:16 19:30 Temperature Pulse Rate 107 H 122 H 109 H Respiratory 26 H 18 26 H Rate Blood Pressure 123/83 123/83 123/83 O2 Sat by Pulse 96 94 98 Oximetry 07/31/18 07/31/18 19:46 20:00 Temperature Pulse Rate 106 H 110 H Respiratory 21 33 H Rate Blood Pressure 123/83 123/87 O2 Sat by Pulse 96 97 Oximetry ED Medical Decision Making - Lab Data Result diagrams: 07/31/18 16:41 07/31/18 16:41 - EKG Data -: EKG Interpreted by Sd EKG shows normal: sinus rhythm Rate: normal - EKG Data Interpretation: no acute changes - Radiology Data Radiology results: report reviewed - Medical Decision Making Patient is 57 years old male with history of COPD, congestive heart failure, coronary artery disease, status post stent. Patient presented to the ER compl aining of shortness of breath for the last 2-3 days. Patient is accompanied by his daughter, patient originally from [facility] and visiting his daughter. The patient was recently discharged from the hospital for the same symptoms. Patient stated that he has been taking his Lasix and albuterol that he is getting too much shortness of breath and lower extremity swelling. Patient also is a daily alcohol drinker. Patient stated that he is feeling much better. Patient received albuterol, Atr ovent, Solu-Medrol and Lasix. Patient had a chest x-ray is negative for acute finding. Advised the patient to follow-up with his primary care physician in the next 2-3 days and to return to the ER if his symptoms are not improved. Critical care attestation.: If time is entered above; I have spent that time in minutes in the direct care of this critically ill patient, excluding procedure time. ED Disposition Clinical Impression: COPD exacerbation, Shortness of breath, Chronic alcoholism Disposition: - TO HOME OR SELFCARE Is pt being admited?: No Condition: Stable Instructions: Chronic Obstructive Pulmonary Disease (ED) Referrals: PRIMARY CARE, [Primary Care Provider] - 3-5 Days
[2018-07-31] MEDS ORDERED: ATIVAN IV ONE (18:17)
[2018-07-31 19:05] LABS: Alanine Aminotransferase 38 units/L (7-56)
[2018-07-31 19:28] LABS: Bilirubin,Direct < 0.2 mg/dL (0-0.2)
[2018-07-31 20:02] VITALS: BP 123/87
== END 2018-07-31 20:37 | disposition home or self-care (01) ==
LOC: ED 15:40
DX: J44.1 Chronic obstructive pulmonary disease with (acute) exacerbation (principal); I50.9 Heart failure, unspecified; F10.20 Alcohol dependence, uncomplicated; F17.200 Nicotine dependence, unspecified, uncomplicated; Z95.5 Presence of coronary angioplasty implant and graft
CPT/HCPCS: 36415; 71046; 80048; 80076; 82803; 83880; 84484; 85007; 85025; 93005; 93010; 94640; 96374; 96375; 99284; J1940; J2060; J2930